=== PATIENT | male | born 1960 | race Two or more races ===

== ENCOUNTER → 2018-05-20 | Outpatient (CLI) | payer SELFPAY ==
[~2018-05-20] MED LIST: GADODIAMIDE 10 MMOL/20 ML ML IV ONE
== END | disposition home or self-care (01) ==
LOC: RAH 14:59
PROVIDERS: ATTEND Neurological Surgery
DX: G93.0 Cerebral cysts (principal); I66.9 Occlusion and stenosis of unspecified cerebral artery; K21.9 Gastro-esophageal reflux disease without esophagitis; I10 Essential (primary) hypertension; E78.5 Hyperlipidemia, unspecified
CPT/HCPCS: 70553; A9579

== ENCOUNTER → 2019-08-08 | Outpatient (CLI) | payer SELFPAY ==
[~2019-08-08] MED LIST changes: -GADODIAMIDE 10 MMOL/20 ML ML IV ONE; +GADODIAMIDE 10 MMOL/20 ML VIAL IV ONE
== END | disposition home or self-care (01) ==
LOC: RAH 08:01
PROVIDERS: ATTEND Internal Medicine Nephrology
DX: N26.1 Atrophy of kidney (terminal) (principal); N28.1 Cyst of kidney, acquired; I70.1 Atherosclerosis of renal artery
CPT/HCPCS: 74183; A9579

== ENCOUNTER → 2020-04-29 | Outpatient (CLI) | payer SELFPAY | END | disposition home or self-care (01) | LOC: RAH 14:06 | PROVIDERS: ATTEND Neurological Surgery | DX: I62.9 Nontraumatic intracranial hemorrhage, unspecified (principal) | CPT/HCPCS: 70450 ==

== ENCOUNTER → 2020-05-27 | Outpatient (CLI) | payer OTHER | END | disposition home or self-care (01) | LOC: RAH 13:10 | PROVIDERS: ATTEND Internal Medicine | DX: Z13.6 Encounter for screening for cardiovascular disorders (principal) | CPT/HCPCS: 75571 ==

== ENCOUNTER 2022-07-06 21:03 | Emergency (ER) | payer BC, OTHER ==
[~2022-07-06] VITALS: Ht 180.3 cm; Wt 79.4 kg
[2022-07-06 21:27] LABS: BASOPHILS % (AUTO) 0.6 % (0.0-5.0); EOSINOPHILS % (AUTO) 2.1 % (0.0-8.0); HEMATOCRIT 40.5 % (42-54); LYMPHOCYTES % (AUTO) 35.2 % (21.0-51.0); MEAN CORPUSCULAR HEMOGLOBIN 29.3 pg (27.0-33.0); MEAN CORPUSCULAR HGB CONC 33.6 g/dL (32.0-36.0); MEAN CORPUSCULAR VOLUME 87.3 fL (79-99); MONOCYTES % (AUTO) 10.7 % (3.0-13.0); NEUTROPHILS % (AUTO) 51.1 % (40.0-77.0); PLATELET COUNT (AUTO) 204 K/uL (130-400); RED BLOOD CELL COUNT(AUTO) 4.64 MIL/uL (4.50-6.20); RED CELL DISTRIBUTION WIDTH 13.2 % (11.0-15.5); WHITE BLOOD COUNT (AUTO) 6.7 K/uL (4.8-10.8)
[2022-07-06 21:37] LABS: CREATININE 1.3 mg/dL (0.5-1.5); POTASSIUM 3.6 mmol/L (3.5-5.1)
[2022-07-06 21:38] LABS: INR 0.96 (0.85-1.15); PROTHROMBIN TIME 10.5 SEC (9.6-11.6)
[2022-07-06 21:44] LABS: ALBUMIN 3.8 g/dL (3.5-5.0); TOTAL PROTEIN, SERUM 7.5 g/dL (6.0-8.3)
[2022-07-07 01:05] VITALS: BP 122/76
== END 2022-07-07 04:45 | disposition short-term general hospital (02) ==
LOC: EDH 21:03
DX: I61.9 Nontraumatic intracerebral hemorrhage, unspecified (principal); I68.0 Cerebral amyloid angiopathy; I10 Essential (primary) hypertension; Z20.822 Contact with and (suspected) exposure to COVID-19
CPT/HCPCS: 99291; 87635; 84484; 80053; 85025; 85610; 36415; 93005; C9803

== ENCOUNTER → 2022-12-31 | Outpatient (CLI) | payer OTHER | END | disposition home or self-care (01) | LOC: RAH 14:19 | PROVIDERS: ATTEND Psychiatry & Neurology Vascular Neurology | DX: G93.89 Other specified disorders of brain (principal); I68.0 Cerebral amyloid angiopathy; Z88.8 Allergy status to other drugs, medicaments and biological substances; Z98.890 Other specified postprocedural states | CPT/HCPCS: 70450 ==